=== PATIENT | female | born 1985 | race African-American/Black ===

== ENCOUNTER 2020-10-01 15:50 | Emergency (ER) | payer OTHER ==
[~2020-10-01] VITALS: Ht 157.5 cm; Wt 113.4 kg
[2020-10-01 17:23] LABS: URINE BILIRUBIN NEGATIVE (Negative); URINE BLOOD NEGATIVE (Negative); URINE CLARITY CLEAR; URINE COLOR YELLOW; URINE GLUCOSE-RANDOM* NEGATIVE (Negative); URINE KETONES NEGATIVE (Negative); URINE NITRITE-REFLEX NEGATIVE (Negative); URINE PROTEIN (DIPSTICK) NEGATIVE (Negative); URINE SPECIFIC GRAVITY >= 1.030 (1.005-1.035); URINE UROBILINOGEN 0.2 E.U./dl (0.2-1.0)
[2020-10-01 17:26] LABS: URINE LEUKOCYTES-REFLEX 1+ (Negative)
[2020-10-01 17:32] LABS: BACTERIA-REFLEX >30 Many /HPF (None Seen); CASTS None Seen /LPF (None Seen); SQUAMOUS >10 Many /LPF (0-3); URINE RBC None Seen /HPF (NONE SEEN); URINE WBC-REFLEX 6-15 Few /HPF (0-5)
[2020-10-01 17:33] LABS: CRYSTALS None Seen /LPF (None Seen)
[2020-10-01] MEDS ORDERED: MACROBID 100 M100 M1 PO (18:32)
[2020-10-01] MEDS ORDERED: TESSALON PERLE100 MG PO (18:32)
[2020-10-01 18:40] VITALS: BP 134/84
[2020-10-02] MEDS ORDERED: MOBIC15 MG PO (09:39)
== END 2020-10-01 18:41 | disposition home or self-care (01) ==
LOC: ER 15:50
PROVIDERS: Nurse Practitioner
DX: N39.0 Urinary tract infection, site not specified (principal); R05 Cough; Z88.0 Allergy status to penicillin

== ENCOUNTER 2020-10-02 08:04 | Emergency (ER) | payer OTHER ==
[~2020-10-02] VITALS: Ht 157.5 cm; Wt 97.5 kg
[~2020-10-02 08:04] MED LIST: MACROBID 100 M100 M1 PO; TESSALON PERLE100 MG PO
[2020-10-02] MEDS ORDERED: MOBIC15 MG PO (09:39)
[2020-10-02 09:50] VITALS: BP 137/75
== END 2020-10-02 09:50 | disposition home or self-care (01) ==
LOC: ER 08:04
DX: G44.209 Tension-type headache, unspecified, not intractable (principal); B34.9 Viral infection, unspecified; Z79.899 Other long term (current) drug therapy; Z88.0 Allergy status to penicillin; Z20.822 Contact with and (suspected) exposure to COVID-19